=== PATIENT | female | born 1970 | race Caucasian/White ===

== ENCOUNTER → 2022-04-04 13:35 | Outpatient (CLI) | payer SELFPAY ==
--- NOTE | 2022-04-04 | DI.CT.S_ITS ---
PROCEDURE: CT CHEST ABD PEL W CON INDICATIONS: Malignant neoplasm of rectum TECHNIQUE: After the administration of oral and intravenous contrast, axial sections acquired from the supraclavicular neck to the pubic symphysis. Coronal and sagittal reformats were performed. For radiation dose reduction, the following was used: automated exposure control, adjustment of mA and/or kV according to patient size. COMPARISON:None. FINDINGS: Image quality: Excellent. CHEST: Lower Neck: No visible adenopathy. Thyroid: Partially imaged and normal as visualized. Axillae: Surgical clips in the right axilla. No adenopathy in either axilla. Chest Wall: Surgical clips of prior lumpectomy in the right breast. No visible chest wall masses. Lungs and Airways: Central and peripheral airways are patent. There is trace subpleural postradiation fibrosis in the anterolateral right upper and right middle lobes. A 4.5 mm solid round nodule in the anterior right lower lobe at a mid lung level, 3/163 is present. Punctate subpleural calcification in the posterolateral superior segment left lower lobe and pleural base calcification in the left posterior costophrenic sulcus. No other suspicious lung nodules, masses, or consolidations. No ground-glass opacities. Pleura: No pneumothorax or pleural effusions. Heart: Heart size is normal. No pericardial effusion. Thoracic Vessels: The aorta and pulmonary arteries demonstrate normal size. Mediastinum and Pamela: No enlarged lymph nodes. Esophagus: No wall thickening. No hiatal hernia. ABDOMEN: Liver: There are several hypodensities throughout the liver with irregular, somewhat indistinct margins. The largest is in posterolateral segment /VII measuring 4.2 x 3.7 cm. There is a perivascular nodule immediately adjacent to the left hepatic vein in segment II measuring 2.1 cm. There is a hypodensity which tense the liver margin in segment IV B. One lesion along the lateral aspect of segment VII measures 1.4 cm and has a clearly targetoid appearance. Gallbladder: Normal wall thickness. Biliary ducts: Nondilated. Pancreas: Normal. Spleen: Normal size. Caudal splenule. Adrenal Glands: No masses. Kidneys and Ureters: Symmetric enhancement. No nephrolithiasis or hydronephrosis. There is mild mid right hydroureter without visible distal obstructing lesion. This may be physiologic. Stomach and Bowel: Irregular wall thickening and slight enhancement in the low rectal region. There is spiculation of the mesorectal fat. There is a small nodule in the anterior and mesorectal fat, potentially a metastatic node. There is a left posterolateral non node measuring 7 mm in short axis, also suspicious for malignant node. The proximal colon is partially distended and has an otherwise normal appearance. Enhanced stomach and small bowel are within normal limits. Peritoneum: No abnormal intraperitoneal fluid. No free air. Ventral Wall: No hernia. Abdominal Nodes: No retroperitoneal or mesenteric adenopathy by size criteria. Vessels: Aorta and inferior vena cava are normal in size. PELVIS: Pelvic Organs: The uterus and ovaries are normal. No adnexal or pelvic sidewall masses. Bladder: Normal. Pelvic Nodes: No visible inguinal or iliac nodes. Miscellaneous: No inguinal hernias are seen. Bones: No suspicious lesions. IMPRESSION: 1. Several irregular hepatic hypodensities with morphology highly suspicious for metastatic disease. 2. Probable primary tumor in the low rectal region with a few mesorectal nodules suspicious for local adenopathy versus extramural extension of tumor. 3. Single round right lower lobe solid lung nodule. In the setting of known and prior malignancy, metastatic disease cannot be excluded, however this is nonspecific. 4. Prior right breast and right axillary surgery and treatment change. Dictated by: Kala Savage M.D. on 04/04/2022 at 16:17 Approved by: Kala Savage M.D. on 04/04/2022 at 16:42
== END ==
PROVIDERS: Referring Provider Surgery; Visit Provider Surgery
DX: C20 Malignant neoplasm of rectum (principal); K76.9 Liver disease, unspecified; R91.1 Solitary pulmonary nodule
CPT/HCPCS: 71260; 74177; Q9967